=== PATIENT | female | born 1955 | race Hispanic/Latino ===

== ENCOUNTER 2016-09-25 08:08 | Outpatient (CLI) | payer OTHER ==
--- NOTE | 2016-09-25 09:51 | Ultrasound Report ---
LEFT BREAST ULTRASOUND: 09/25/16 08:08:00 CLINICAL: History of breast cancer status post bilateral mastectomy with implant reconstruction. Palpable lump in the lateral aspect of the left breast. COMPARISON: 10/25/14 FINDINGS: Ultrasound of the left breast demonstrate a stable smaller palpable seroma adjacent to the implant at 3 o'clock 6 cm from the nipple. It now measures 1.7 x 0.5 x 1.0 cm compared to 4.0 x 0.5 x 1.2 cm on the last exam. No solid mass or shadowing. The implant is intact. IMPRESSION: A slightly smaller benign seroma at 3 o'clock left breast. BI-RADS 2 - - Benign RECOMMENDATION: Clinical followup.
== END 2016-09-25 08:09 | disposition home or self-care (01) ==
LOC: SPVWC 08:08
PROVIDERS: ATTEND Internal Medicine Hematology & Oncology
DX: N63 Unspecified lump in breast (principal); N64.89 Other specified disorders of breast; I10 Essential (primary) hypertension; J18.9 Pneumonia, unspecified organism; F20.9 Schizophrenia, unspecified; F41.9 Anxiety disorder, unspecified; J45.909 Unspecified asthma, uncomplicated; Z85.3 Personal history of malignant neoplasm of breast; Z90.11 Acquired absence of right breast and nipple; Z90.12 Acquired absence of left breast and nipple; Z98.82 Breast implant status

== ENCOUNTER 2018-04-11 05:55 | Day surgery (SDC) | payer OTHER ==
[2018-04-11] MEDS ORDERED: VERSED IV NR (06:23)
[2018-04-11] MEDS ORDERED: SUBLIMAZE IV NR (06:23)
[2018-04-11 06:51] LABS: Basophils # (Auto) 0.1 K/mm3 (0.0-0.1); Basophils % (Auto) 0.9 % (0.0-1.8); Eosinophils # (Auto) 0.3 K/mm3 (0.0-0.4); Eosinophils % (Auto) 4.9 % (0.0-4.3); Hematocrit 36.4 % (30.3-42.9); Hemoglobin 12.3 gm/dl (10.1-14.3); Lymphocytes # (Auto) 2.3 K/mm3 (1.2-5.4); Lymphocytes % (Auto) 36.5 % (13.4-35.0); Mean Corpuscular HGB Conc 34 % (30-34); Mean Corpuscular Volume 88 fl (79-97); Monocytes # (Auto) 0.7 K/mm3 (0.0-0.8); Monocytes % (Auto) 11.4 % (0.0-7.3); Platelet Count 345 K/mm3 (140-440); Red Blood Count 4.14 M/mm3 (3.65-5.03); Red Cell Distribution Width 13.3 % (13.2-15.2)
[2018-04-11 07:00] LABS: INR 0.96 (0.87-1.13); Partial Thromboplastin Time 31.2 Sec. (24.2-36.6)
[2018-04-11] MEDS ORDERED: NACL 0.9% 500 ML 500 ML IV SCH (07:00)
[2018-04-11] MEDS ORDERED: XYLOCAINE 1% 20 mL ONE (09:25)
[2018-04-11] MEDS ORDERED: BENADRYL ONE ×2 (09:26→10:15)
[2018-04-11] MEDS ORDERED: TYLENOL ONE (10:15)
[2018-04-11] MEDS ORDERED: BENADRYL IV ONE (10:22)
[2018-04-11] MEDS ORDERED: TYLENOL PO ONE (11:00)
--- NOTE | 2018-04-11 11:03 | Cat Scan Report ---
CT BIOPSY LUNG LEFT History: Right breast cancer, left lower lobe mass. Description of procedure: Informed consent was obtained. Sterile technique was utilized. 1% lidocaine for skin anesthesia. Moderate sedation was accomplished with Versed, fentanyl and Benadryl. The patient was sedated for 20 minutes. Intra-observer time of 15 minutes. Independent cardiorespiratory monitoring by RN. Using CT guidance, a 19-gauge introducer needle was advanced to the leading edge of a 1.6 cm mass in the anterior segment of the left lower lobe. 3 separate 2.2 cm 20-gauge core biopsies were obtained. The samples were deemed adequate by the pathologist on site. Follow up scan demonstrates no evidence for pneumothorax. The patient tolerated the procedure without difficulty. Impression: Successful CT-guided biopsy of the 1.6 cm mass in the left lower lobe.
--- NOTE | 2018-04-11 12:07 | XRay Report ---
AP CHEST: HISTORY: Lung mass, recent CT-guided biopsy Recent CT-guided biopsy of a 1.6 cm mass in the left lower lobe was performed. Followup AP chest images no evidence for pneumothorax. Left lower lobe mass is again noted. The remainder of the lungs are clear. Normal heart and mediastinal structures. IMPRESSION: No evidence for pneumothorax.
[2018-04-11 12:47] VITALS: BP 110/56
== END 2018-04-11 13:45 | disposition home or self-care (01) ==
LOC: CATHLABREC 05:55 → EDSTATUS 07:30 → CATHLABREC 13:45
PROVIDERS: ATTEND Internal Medicine Hematology & Oncology
DX: C34.32 Malignant neoplasm of lower lobe, left bronchus or lung (principal); F41.9 Anxiety disorder, unspecified; G47.00 Insomnia, unspecified; E78.00 Pure hypercholesterolemia, unspecified; I10 Essential (primary) hypertension; M19.90 Unspecified osteoarthritis, unspecified site; E03.9 Hypothyroidism, unspecified; Z85.3 Personal history of malignant neoplasm of breast; Z88.0 Allergy status to penicillin; Z88.2 Allergy status to sulfonamides; Z79.899 Other long term (current) drug therapy; Z98.890 Other specified postprocedural states; Z90.49 Acquired absence of other specified parts of digestive tract; Z90.13 Acquired absence of bilateral breasts and nipples; Z82.61 Family history of arthritis; Z80.8 Family history of malignant neoplasm of other organs or systems; Z87.440 Personal history of urinary (tract) infections; Z82.5 Family history of asthma and other chronic lower respiratory diseases; Z88.8 Allergy status to other drugs, medicaments and biological substances; Z79.01 Long term (current) use of anticoagulants
CPT/HCPCS: 32405; 36415; 71045; 77012; 81235; 85025; 85610; 85730; 88104; 88271; 88305; 88333; 88341; 88342; 96374; J1200; J2250; J3010; J7040; 88173